=== PATIENT | female | born 1995 | race Caucasian/White ===

== ENCOUNTER 2020-11-01 20:27 | Outpatient (CLI) | payer OTHER ==
[~2020-11-01 20:27] MED LIST: COLACE 100MG C100 MG PO; IBUPROFEN600 MG PO; LORTAB 5-325 M1 EACH PO; PRENATAL VITAM1 EAC5 PO; ZOLOFT50 MG PO
[2020-11-01 22:41] LABS: HEMOGLOBIN 9.5 gm/dl (12.3-15.3); RED BLOOD COUNT 3.37 M/UL (4.00-5.10); WHITE BLOOD COUNT 9.3 K/UL (4.5-11.0)
== END 2020-11-02 00:04 | disposition home or self-care (01) ==
LOC: GENOP 20:27
PROVIDERS: Internal Medicine Pulmonary Disease
DX: O16.3 Unspecified maternal hypertension, third trimester (principal); O12.13 Gestational proteinuria, third trimester; Z3A.36 36 weeks gestation of pregnancy; O47.03 False labor before 37 completed weeks of gestation, third trimester; O36.8130 Decreased fetal movements, third trimester, not applicable or unspecified; O99.891 Other specified diseases and conditions complicating pregnancy; M54.5 Low back pain
CPT/HCPCS: 36415; 59025; 81001; 82247; 82248; 82565; 82570; 84156; 84450; 84460; 84550; 85025; 85379; 85384; 85610; 85730; 96360

== ENCOUNTER 2020-11-07 08:30 | Inpatient (IN) | payer OTHER ==
[~2020-11-07] VITALS: Ht 162.6 cm; Wt 110.2 kg
[2020-11-07] MEDS ORDERED: IBUPROFEN600 MG PO (14:20)
[2020-11-07] MEDS ORDERED: DOCUSATE SODIU100 MG PO (14:20)
[2020-11-07] MEDS ORDERED: HYDROCODON-ACE1 EAC4 PO (14:20)
[2020-11-08 05:11] LABS: HEMOGLOBIN 9.4 gm/dl (12.3-15.3)
[2020-11-08] MEDS ORDERED: HYDROCODONE-AC1 EAC1 PO (12:18)
[2020-11-09] MEDS ORDERED: COLACE 100MG C100 MG PO (11:55)
[2020-11-09] MEDS ORDERED: ENDOCET 5-3251 EACH PO (11:55)
[2020-11-09] MEDS ORDERED: HYDROCODON-ACE1 EAC6 PO (11:55)
== END 2020-11-09 11:52 | disposition home or self-care (01) | DRG 787 ==
LOC: OB 10:30
PROVIDERS: ADMIT Obstetrics & Gynecology
PROC: 4A1HXCZ Monitoring of Products of Conception, Cardiac Rate, External Approach (ICD-10-PCS; 2020-11-07)
PROC: 10D00Z1 Extraction of Products of Conception, Low, Open Approach (ICD-10-PCS; principal; 2020-11-08)
DX: O34.211 Maternal care for low transverse scar from previous cesarean delivery (principal); O99.354 Diseases of the nervous system complicating childbirth; Z3A.37 37 weeks gestation of pregnancy; Z20.822 Contact with and (suspected) exposure to COVID-19; Z37.0 Single live birth; O13.4 Gestational [pregnancy-induced] hypertension without significant proteinuria, complicating childbirth; O99.02 Anemia complicating childbirth; O99.344 Other mental disorders complicating childbirth; F41.9 Anxiety disorder, unspecified; Z91.040 Latex allergy status; Z83.3 Family history of diabetes mellitus; Z81.8 Family history of other mental and behavioral disorders; Z82.49 Family history of ischemic heart disease and other diseases of the circulatory system; Z81.1 Family history of alcohol abuse and dependence; Z80.3 Family history of malignant neoplasm of breast; Z80.0 Family history of malignant neoplasm of digestive organs; Z80.8 Family history of malignant neoplasm of other organs or systems; O14.04 Mild to moderate pre-eclampsia, complicating childbirth
CPT/HCPCS: 36415; 80053; 81001; 85014; 85018; 85025; 90707; 90715; C9113; J0690; J1885; J2274; J2405; J2550; J2590; J3010; J7120; U0003